=== PATIENT | male | born 1990 | race African-American/Black ===

== ENCOUNTER 2017-06-30 17:04 | Emergency (ER) | payer SELFPAY ==
[2017-06-30] MEDS: oxyCODONE/APAP 5/325 1 TAB TABLET PO (17:21)
== END 2017-06-30 18:07 | disposition home or self-care (01) ==
LOC: ER 17:04
DX: S62.316A Displaced fracture of base of fifth metacarpal bone, right hand, initial encounter for closed fracture (principal); Z88.1 Allergy status to other antibiotic agents; Z88.6 Allergy status to analgesic agent; W23.0XXA Caught, crushed, jammed, or pinched between moving objects, initial encounter; Y93.89 Activity, other specified; Y92.89 Other specified places as the place of occurrence of the external cause; Y99.8 Other external cause status
CPT/HCPCS: 29125; 73130; 99284

== ENCOUNTER 2018-11-01 16:28 | Emergency (ER) | payer SELFPAY ==
[~2018-11-01] VITALS: Ht 182.9 cm; Wt 83.9 kg
[~2018-11-01 16:28] MED LIST: HYDR-3164 PO
[2018-11-01 16:45] VITALS: BP 153/80
[2018-11-01] MEDS ORDERED: DOXY100T PO (17:16)
--- NOTE | 2018-11-01 17:17 | PHYS DOC ---
Past Medical History Past Medical History: No Pertinent History Past Surgical History: No Surgical History Alcohol Use: Occasionally Drug Use: None Adult General Chief Complaint Chief Complaint: GROIN PAIN HPI HPI Patient is a 28 year old [male] who presents with [penile discharge for the last 4 weeks. Patient reports he had a different sexual partner approximately 4 weeks ago, had unprotected intercourse, and since that time he has been experiencing some penile discharge, reports he notices some whitish discharge from his penis in the morning. Reports he has had some tenderness to the superior aspect of his right testicle, reports he has had this in the past, reports he feels a lump on the top. Does report he has had a prior STI, approximately 12 years ago. Denies any fever, denies any urinary concerns other than the discharge he has noticed. ] Review of Systems Review of Systems Constitutional: Denies fever or chills [] Eyes: Denies change in visual acuity, redness, or eye pain [] HENT: Denies nasal congestion or sore throat [] Respiratory: Denies cough or shortness of breath [] Cardiovascular: No additional information not addressed in HPI [] GI: Denies abdominal pain, nausea, vomiting, bloody stools or diarrhea [] : Denies dysuria or hematuria, reports penile discharge testicular discomfort [] Musculoskeletal: Denies back pain or joint pain [] Integument: Denies rash or skin lesions [] Neurologic: Denies headache, focal weakness or sensory changes [] Endocrine: Denies polyuria or polydipsia [] All other systems were reviewed and found to be within normal limits, except as documented in this note. Allergies Allergies Allergies Coded Allergies Type Severity Reaction Last Updated Verified amoxicillin Allergy Intermediate 06/30/17 Yes naproxen Allergy Intermediate 06/30/17 Yes Physical Exam Physical Exam Constitutional: Well developed, well nourished, no acute distress, non-toxic appearance. [] HENT: Normocephalic, atraumatic, bilateral external ears normal, oropharynx moist, no oral exudates, nose normal. [] Skin: Warm, dry, no erythema, no rash. [] Back: No tenderness, no CVA tenderness. [] Extremities: No tenderness, no cyanosis, no clubbing, ROM intact, no edema. [] Neurologic: Alert and oriented X 3, normal motor function, normal sensory function, no focal deficits noted. [] Psychologic: Affect normal, judgement normal, mood normal. [] : Noted firm cord to superior aspect of right testicle, consistent with epididymitis. No lesions noted. no penile discharge noted on exam, no chancre or lesions noted. EKG EKG [] Radiology/Procedures Radiology/Procedures [] Course & Med Decision Making Course & Med Decision Making Pertinent Labs and Imaging studies reviewed. (See chart for details) [Discussed safer sexual practices with patient, discussed medications to treat suspected STI and epididymitis. Discussed concerns of Testicular cancer vs epididymitis, discussed symptoms consistent with STI and swollen firm cord more likely for epididymitis concerns. Discussed following up with PCP if he continues to have discomfort after treatment. Will sent urine for STI testing. Will treat today with PO medications. Patient counseled on safer sexual practices and use of condom. ] Dragon Disclaimer Dragon Disclaimer This electronic medical record was generated, in whole or in part, using a voice recognition dictation system. Departure Departure Impression: Primary Impression: Epididymitis, right Additional Impression: Sexually transmitted disease Disposition: HOME, SELF-CARE Condition: STABLE Referrals: NO PCP (PCP) Patient Instructions: Epididymitis, Safe Sex Additional Instructions: As we discussed, take the antibiotic as prescribed. No unprotected intercourse for 7 days AFTER you complete the antibiotics It's always best to use condoms when you are having intercourse to protect from infections. We are not testing for HIV or syphilis, for these tests, you should go to the health department for blood testing. Scripts Doxycycline Hyclate (DOXYCYCLINE HYCLATE) 100 Mg Tablet 100 MG PO BID for 10 Days, #20 TAB Prov: ODALIS KRAMER APRN 11/01/18 Problem Qualifiers ODALIS KRAMER APRN Nov 01, 2018 17:16
== END 2018-11-01 17:28 | disposition home or self-care (01) ==
LOC: ER 16:28
DX: A64 Unspecified sexually transmitted disease (principal); N45.1 Epididymitis; Z88.1 Allergy status to other antibiotic agents; Z88.5 Allergy status to narcotic agent
CPT/HCPCS: 87491; 87591; 99284